=== PATIENT | male | born 1970 | race Caucasian/White ===

== ENCOUNTER 2023-10-25 06:54 | Day surgery (SDC) | payer BC, OTHER ==
[2023-10-25] MEDS ORDERED: fentaNYL 100 MCG/2 ML SDV IV ONE (06:55)
[2023-10-25] MEDS ORDERED: Midazolam 1 MG/ML 2 ML SDV IV ONE (06:55)
[2023-10-25] MEDS: Dextrose 5%-0.45% NaCl 1,000 ML IV SCH (07:20)
[2023-10-25] MEDS ORDERED: fentaNYL 100 MCG/2 ML SDV ONE (07:30)
[2023-10-25] MEDS ORDERED: Midazolam 1 MG/ML 2 ML SDV ONE (07:30)
[2023-10-25] MEDS: fentaNYL 100 MCG/2 ML SDV IV ONE ×2 (08:04→08:05)
[2023-10-25] MEDS: Midazolam 1 MG/ML 2 ML SDV IV ONE ×2 (08:06→08:07)
[2023-10-25 09:09] VITALS: PULSE 80
[2023-10-25 09:10] VITALS: BP 113/68
== END 2023-10-25 09:44 | disposition home or self-care (01) ==
LOC: DL.ENDO 06:54
PROVIDERS: ATTEND Internal Medicine Gastroenterology
DX: K29.50 Unspecified chronic gastritis without bleeding (principal); I10 Essential (primary) hypertension; E78.00 Pure hypercholesterolemia, unspecified; E66.9 Obesity, unspecified
CPT/HCPCS: 43239; 87077; J2250; J3010; J7042

== ENCOUNTER 2023-10-31 05:54 | Day surgery (SDC) | payer OTHER ==
[2023-10-31] MEDS ORDERED: Midazolam 1 MG/ML 2 ML SDV IV ONE (05:55)
[2023-10-31] MEDS ORDERED: fentaNYL 100 MCG/2 ML SDV IV ONE (05:55)
[2023-10-31] MEDS ORDERED: fentaNYL 100 MCG/2 ML SDV ONE (06:13)
[2023-10-31] MEDS ORDERED: Midazolam 1 MG/ML 2 ML SDV ONE (06:13)
[2023-10-31] MEDS: Dextrose 5%-0.45% NaCl 1,000 ML IV SCH (06:19)
[2023-10-31] MEDS: fentaNYL 100 MCG/2 ML SDV IV ONE ×3 (06:57→07:05)
[2023-10-31] MEDS: Midazolam 1 MG/ML 2 ML SDV IV ONE ×6 (06:58→07:03)
[2023-10-31 08:48] VITALS: PULSE 83
[2023-10-31 08:49] VITALS: BP 111/71
== END 2023-10-31 08:55 | disposition home or self-care (01) ==
LOC: DL.ENDO 05:54
PROVIDERS: ATTEND Internal Medicine Gastroenterology
DX: K57.30 Diverticulosis of large intestine without perforation or abscess without bleeding (principal); K64.4 Residual hemorrhoidal skin tags; I10 Essential (primary) hypertension; K21.9 Gastro-esophageal reflux disease without esophagitis; E78.00 Pure hypercholesterolemia, unspecified; E66.09 Other obesity due to excess calories
CPT/HCPCS: J2250; J3010; J7042